=== PATIENT | female | born 1945 | race Caucasian/White ===

== ENCOUNTER 2017-10-08 15:31 | Emergency (ER) | payer MEDICARE ==
--- NOTE | 2017-10-08 15:47 | ED.PDOC ---
History of Present Illness - General Chief Complaint: Upper Extremity Injury Stated Complaint: fall Time Seen by Provider: 10/08/17 15:47 Source: patient, family - Exam Limitations: no limitations - History of Present Illness Initial Comments: Ms. Eleanor Delvalle 71 y/o female stated that as she was going out the [employer] today she tripped on a carpet mat outside the store fell on her face hiting the cart and eventually lost her balance falling on her left side then had dull ache on her neck ,left shoulder and arm.Denies head injury, remembers incident no headache or blurry vision. Occurred: just prior to arrival Pain - Upper Extremity: moderate: Shoulder, left, Upper arm, left Method of Injury: fell Improving Factors: rest Worsening Factors: movement Allergies/Adverse Reactions: Allergies Codeine Allergy (Verified 10/08/17 16:02) Rash Iodine Allergy (Verified 10/08/17 16:02) Rash Penicillins Allergy (Verified 10/08/17 16:02) Rash Home Medications: Ambulatory Orders HYDROcodone 10MG/APAP 325MG 10/08/17 Losartan Potassium 10/08/17 Naproxen 10/08/17 Review of Systems - Review of Systems Constitutional: States: no symptoms reported EENTM: States: no symptoms reported Respiratory: States: no symptoms reported Cardiology: States: no symptoms reported Gastrointestinal/Abdominal: States: no symptoms reported Genitourinary: States: no symptoms reported Musculoskeletal: States: see HPI Skin: States: see HPI Past Medical History (General) - Patient Medical History Hx Hypertension: Yes Hx Other PMH: Yes - multiple sclerosis Surgical History: appendectomy, cholecystectomy, other - hysterectomy;BTL ORIF both lower ext-accident fall Family Medical History - Family History Mother Living Status: Still Living Hx Family Hypertension: Yes Hx Family;Other: Dementia Physical Exam - Physical Exam General Appearance: Alert, Comfortable, No apparent distress Eyes, Ears, Nose, Throat Exam: PERRL/EOMI, normal ENT inspection, pharynx normal Neck: limited range of motion, tender lateral Cardiovascular/Respiratory: no M/R/G, normal peripheral pulses, normal breath sounds Abdominal Exam: non-tender, no organomegaly Back Exam: normal inspection, no CVA tenderness, no vertebral tenderness Shoulder Exam: bone tenderness - left shoulder and arm, limited ROM - left shoulder, pain - left shoulder, soft tissue tenderness - left upper extremities Elbow/Forearm Exam: non-tender, no evidence of injury Wrist Exam: non-tender, no evidence of injury Hand Exam: non-tender, no evidence of injury Neuro/Tendon: normal sensation, normal motor functions, normal tendon functions Mental Status: alert, oriented x 3, depressed affect Skin Exam: normal color, warm/dry, other - abrasion upper lip area,soft tissue swelling left cheek Progress - Progress Progress: 10/08/17 16:11 Last Vital Signs Temp 98.2 F 10/08/17 15:48 Pulse 78 10/08/17 15:48 Resp 18 10/08/17 15:48 BP 189/75 10/08/17 15:48 Pulse Ox 96 10/08/17 15:48 - EKG/XRAY/CT XRAY: left humerus fracture Departure - Departure Clinical Impression: Fall Qualifiers: Encounter type: initial encounter Qualified Code(s): W19.XXXA - Unspecified fall, initial encounter Fracture, humerus closed Qualifiers: Encounter type: initial encounter Humerus Location: proximal Fracture morphology: unspecified fracture morphology Laterality: left Qualified Code(s): S42.202A - Unspecified fracture of upper end of left humerus, initial encounter for closed fracture Time of Disposition: 17:35 Disposition: Discharge to Home or Self Care Condition: Fair Departure Forms: ED Discharge - Pt. Copy, Patient Portal Self Enrollment Instructions: DI for Shoulder Fracture Referrals: Dusty Schwab III, MD [Family Provider] - 1-2 Weeks Home Medications: Ambulatory Orders HYDROcodone 10MG/APAP 325MG 10/08/17 Losartan Potassium 10/08/17 Naproxen 10/08/17 Additional Instructions: Follow up with primary md 10/11 2017 in [facility] call for appointment for ortho referral
--- NOTE | 2017-10-08 17:19 | RAD ---
EXAM DESCRIPTION: Humerus,Left CLINICAL HISTORY: 71 years Female pain COMPARISON: None. TECHNIQUE: LEFT humerus, two views FINDINGS: There is a comminuted fracture of the humeral head along the lateral aspect with mild displacement of the smaller fracture fragment. Moderate degenerative change at the AC joint. IMPRESSION: Comminuted fracture of the lateral aspect of the humeral head Electronically signed by: Carmelita Hill 10/08/2017 5:18 PM [facility]
--- NOTE | 2017-10-08 17:20 | RAD ---
EXAM DESCRIPTION: Shoulder,Left 2 or More Views CLINICAL HISTORY: 71 years Female pain COMPARISON: None. TECHNIQUE: LEFT SHOULDER three view FINDINGS: Comminuted fracture of the proximal humerus which involves the lateral aspect of the humeral head. Suspect additional transverse component extending through the neck with mild impaction degenerative changes at the AC joint. Acromioclavicular joint appears maintained. IMPRESSION: Comminuted fracture of the proximal humerus with fracture extending through the lateral aspect of the humeral head and suspect additional impacted transversely oriented fracture at the junction of the head and neck which is nondisplaced this could be further evaluated with CT Electronically signed by: Carmelita Hill 10/08/2017 5:19 PM [employer]
--- NOTE | 2017-10-08 17:20 | RAD ---
PROCEDURE: Cervical Spine,3 Views Clinical History: pain Indication: Same as above Comparison: None . Technique: 4.0 views of the cervical spine were done. Findings: On the lateral projection only the upper four vertebral body levels are evaluated adequately. On the lateral projection note is made of bilateral facet arthropathy at multiple levels. C1/C2 alignment is normal Impression: Suboptimal evaluation of the cervical spine. The cervical spine can be evaluated with a CT of the cervical spine Place of interpretation: [id number]. Electronically signed by: Woodrow Ring MD 10/08/2017 5:19 PM [facility] Workstation: [employer] [employer]-
[2017-10-08] MEDS ORDERED: HYDROcodone 10MG/APAP 325MG 1 EA TAB PO ONE (17:31)
[2017-10-08] MEDS ORDERED: NEOMYCIN-BACITRACIN-POLYMYXIN 0.9 GM UD TOP ONE (18:51)
[2017-10-08] MEDS ORDERED: LISINOPRIL 10 MG TAB PO ONE (20:06)
[2017-10-08 21:25] VITALS: O2SAT 99
[2017-10-08 21:26] VITALS: BP 139/74; TEMP 97.1
== END 2017-10-08 19:50 | disposition home or self-care (01) ==
LOC: ER 15:31
DX: S42.202A Unspecified fracture of upper end of left humerus, initial encounter for closed fracture (principal); I10 Essential (primary) hypertension; G35 Multiple sclerosis; W01.0XXA Fall on same level from slipping, tripping and stumbling without subsequent striking against object, initial encounter; Y92.512 Supermarket, store or market as the place of occurrence of the external cause